=== PATIENT | female | born 1940 | race Caucasian/White ===

== ENCOUNTER 2024-07-24 11:53 | Emergency (ER) | payer OTHER ==
[~2024-07-24] VITALS: Ht 149.9 cm; Wt 38.6 kg
[2024-07-24 12:24] VITALS: BP 149/68; PULSE 70; RESP 20; TEMP 97.3; O2SAT 95
[2024-07-24] MEDS: FLUORESCEIN OPTH STRIP 1 MG OP ONE (13:29)
[2024-07-24] MEDS ORDERED: IBUP-1842 PO (13:49)
[2024-07-24] MEDS ORDERED: ERYT5OIN58 OP (13:49)
== END 2024-07-24 14:12 | disposition home or self-care (01) ==
LOC: MED 11:53
DX: H10.89 Other conjunctivitis (principal); B96.89 Other specified bacterial agents as the cause of diseases classified elsewhere; E11.9 Type 2 diabetes mellitus without complications; I10 Essential (primary) hypertension
CPT/HCPCS: 99283